=== PATIENT | male | born 1980 | race Caucasian/White ===

== ENCOUNTER 2016-09-08 17:18 | Emergency (ER) | payer OTHER ==
[~2016-09-08] VITALS: Ht 177.8 cm; Wt 93.6 kg
[~2016-09-08 17:18] MED LIST: BUSPAR5 MG PO; NOHOMEMEDS; PERCOCET 5/31 TABLET PO
[2016-09-08 18:25] VITALS: BP 133/85
== END 2016-09-08 18:26 | disposition home or self-care (01) ==
LOC: EME 17:18
PROC: 0HQFXZZ Repair Right Hand Skin, External Approach (ICD-10-PCS; principal; 2016-09-08)
DX: S61.210A Laceration without foreign body of right index finger without damage to nail, initial encounter (principal); W45.8XXA Other foreign body or object entering through skin, initial encounter; W20.8XXA Other cause of strike by thrown, projected or falling object, initial encounter
CPT/HCPCS: 99281; 99284

== ENCOUNTER 2017-02-09 21:10 | Emergency (ER) | payer OTHER ==
[~2017-02-09] VITALS: Ht 154.9 cm; Wt 88.6 kg
[2017-02-09] MEDS ORDERED: NAPROSYN500 MG PO (22:52)
[2017-02-09] MEDS ORDERED: TRAMADOL HCL50 MG PO (22:52)
[2017-02-09 23:13] VITALS: BP 133/68
== END 2017-02-09 23:14 | disposition home or self-care (01) ==
LOC: EME 21:10
DX: S80.01XA Contusion of right knee, initial encounter (principal); S90.31XA Contusion of right foot, initial encounter; S80.211A Abrasion, right knee, initial encounter; M25.571 Pain in right ankle and joints of right foot; V09.20XA Pedestrian injured in traffic accident involving unspecified motor vehicles, initial encounter
CPT/HCPCS: 73564; 73610; 73630; 99281; 99284